=== PATIENT | male | born 1965 | race Caucasian/White ===

== ENCOUNTER 2019-01-04 00:51 | Emergency (ER) | payer BC ==
[2019-01-04] MEDS ORDERED: Amiodarone 150 MG/3 ML VIAL ONE (00:58)
[2019-01-04] MEDS ORDERED: Magnesium 2 GM/50 ML BAG (IN WATER) ONE (01:03)
[2019-01-04] MEDS ORDERED: Midazolam HCl 5 mg/ml Vial ONE (01:12)
[2019-01-04 01:16] LABS: Base Excess-Venous -0.8 mmol/L (-2.0 to 3.0); Bicarbonate (HCO3v) 26.7 mmol/L (22.0-28.0); CO2 Tension (PvCO2) 53.8 mmHg (40.0-50.0); Chloride 106 mmol/L (98-107); Glucose 179 mg/dL (70-105); Hemoglobin - Calc 16.7 g/dL (14.0-18.0); Lactate 3.54 mmol/L (0.50-2.20); Sodium 142 mmol/L (138-145); T. Carbon Dioxide 28.4 mmol/L (22.0-28.0); vO2 Saturation-calc 22.4 % (60.0-85.0)
[2019-01-04 01:45] LABS: #Eosinphils 0.1 thou/uL (0.0-0.7); #Lymphocytes 1.9 thou/uL (1.20-3.40); #Monocytes 0.5 thou/uL (0.11-0.59); #Neutrophils 12.5 thou/uL (1.40-6.50); %Basophils 0.1 % (0.0-1.0); %Eosinophils 0.4 % (0.0-10.0); %Lymphocytes 12.4 % (21.0-51.0); %Monocytes 3.3 % (0.0-10.0); %Neutrophils 83.8 % (42.0-75.0); Hemoglobin 17.1 g/dL (14.0-18.0); Mean Corpuscular HGB CONC 34.4 g/dL (32.0-36.0); Mean Corpuscular Hemoglobin 31.2 pg (27.0-31.0); Mean Corpuscular Volume 90.8 fL (78.0-98.0); Mean Platelet Volume 9.3 fL (7.4-10.4); Platelet Count 354 thou/uL (130-400); RBC Distribution Width 12.1 % (11.5-14.5); Red Blood Cell (RBC) Count 5.49 mill/uL (4.70-6.10); White Blood Cell (WBC) Count 14.9 thou/uL (4.8-10.8)
[2019-01-04 02:09] LABS: ALT (SGPT) 26 U/L (8-55); AST (SGOT) 30 U/L (5-34); Albumin 4.8 g/dL (3.5-5.0); Alkaline Phosphatase 81 U/L (40-150); Anion Gap 19 mmol/L (10-20); BUN (Urea Nitrogen) 23 mg/dL (8.4-25.7); Bilirubin, Total 1.1 mg/dL (0.2-1.2); CK (CPK) 143 U/L (30-200); Calc. Creatinine Clearance 0 mL/min (70-130); Calcium 10.8 mg/dL (7.8-10.44); Carbon Dioxide 25 mmol/L (22-29); Chloride 105 mmol/L (98-107); Estimated GFR-MDRD 40; Globulin 2.9 g/dL (2.4-3.5); Glucose 176 mg/dL (70-105); Magnesium 2.2 mg/dL (1.6-2.6); Protein, Total 7.7 g/dL (6.0-8.3); Sodium 145 mmol/L (136-145)
[2019-01-04 02:32] LABS: CKMB 9.7 ng/mL (0-6.6)
--- NOTE | 2019-01-04 07:43 | RAD ---
RADIOGRAPH CHEST 1 VIEW: DATE: 01/04/2019 HISTORY: Tachycardia and cardiac arrhythmia FINDINGS: There is cardiomegaly. There is no evidence of airspace density, pulmonary edema, or pneumothorax. Th e lateral costophrenic angles are not effaced. IMPRESSION: 1) No acute pulmonary findings. 2) cardiomegaly without congestive heart failure.
== END 2019-01-04 03:43 | disposition left against medical advice (07) ==
LOC: ERS 00:51
DX: R00.0 Tachycardia, unspecified (principal); R79.89 Other specified abnormal findings of blood chemistry
CPT/HCPCS: 71045; 80053; 82330; 82435; 82550; 82553; 82565; 82803; 82947; 83605; 83735; 84132; 84295; 84443; 84484; 85014; 85025; 93005; 96361; 96365; 96374; 96375; J0282; J2250; J3475

== ENCOUNTER → 2019-01-31 | Day surgery (SDC) | payer BC ==
[2019-01-30 13:25] VITALS: BMI 23.4
[~2019-01-31] MED LIST: Adenosine 6 MG/2 ML VIAL ONE; Fentanyl 100 MCG/2 ML VIAL ONE; Heparin 10,000 UNITS/1 ML VIAL ONE; Iopamidol 370 76% 100 ML VIAL ONE; Lidocaine 1% (PF) 30 ML VIAL ONE; Midazolam HCl 2 mg/2 ml Vial ONE; Nitroglycerin 100MG/250ML BOT 250 ML ONE; Verapamil 5 MG/2 ML VIAL ONE
[2019-01-31 07:09] LABS: ALT (SGPT) 20 U/L (8-55); AST (SGOT) 22 U/L (5-34); Albumin 3.9 g/dL (3.5-5.0); Alkaline Phosphatase 72 U/L (40-150); Anion Gap 13 mmol/L (10-20); BUN (Urea Nitrogen) 17 mg/dL (8.4-25.7); Bilirubin, Total 0.5 mg/dL (0.2-1.2); Calc. Creatinine Clearance 100 mL/min (70-130); Calcium 9.8 mg/dL (7.8-10.44); Carbon Dioxide 27 mmol/L (22-29); Chloride 105 mmol/L (98-107); Estimated GFR-MDRD 87; Globulin 2.6 g/dL (2.4-3.5); Glucose 95 mg/dL (70-105); Protein, Total 6.5 g/dL (6.0-8.3); Sodium 141 mmol/L (136-145)
== END ==
LOC: CCL 06:08
PROVIDERS: ATTEND Internal Medicine Cardiovascular Disease
PROC: B2111ZZ Fluoroscopy of Multiple Coronary Arteries using Low Osmolar Contrast (ICD-10-PCS; principal; 2019-01-31)
PROC: 4A023N7 Measurement of Cardiac Sampling and Pressure, Left Heart, Percutaneous Approach (ICD-10-PCS; principal; 2019-01-31)
DX: I47.2 Ventricular tachycardia (principal); Z79.899 Other long term (current) drug therapy
CPT/HCPCS: 80053; 93458; 99152; C1769; J0153; J1644; J2001; J2250; J3010; Q9967

== ENCOUNTER 2019-05-10 07:53 | Day surgery (SDC) | payer BC ==
[2019-05-09 13:10] VITALS: BMI 24.0
[2019-05-10] MEDS ORDERED: PROPOFOL 200 MG/20 ML VIAL ONE (10:06)
--- NOTE | 2019-05-10 11:57 | OP ---
DATE OF PROCEDURE: 05/10/2019 [facility] STERILIZER SURGEON: None. PROCEDURE PERFORMED: Colonoscopy with snare polypectomy. INDICATION: Personal history of colon polyps. MEDICATIONS: See Anesthesia record. FINDINGS: After discussion of the risks, benefits, and alternatives of the procedure, informed consent was obtained and witnessed. Pre-endoscopic cardiopulmonary examination was satisfactory. Time-out was performed before sedation was achieved. Sedation was achieved with Anesthesia assistance in the endoscopy unit. Digital rectal exam was performed, which was unremarkable. A Pentax adult colonoscope was inserted into the anus and passed forward to the cecum in the usual fashion. The cecal base was identified by the appendiceal orifice as well as the ileocecal valve. The terminal ileum was intubated and the ileal mucosa appeared normal. The colonoscope was slowly withdrawn in a gradual and circumferential manner with careful examination of the entire colonic mucosa. The quality of the prep was good. In the ascending colon, there was a sessile polyp measuring 7 mm in diameter. This was completely removed with hot snare and retrieved for pathology. In the transverse colon, there were 2 sessile polyps measuring from 1 to 4 mm in diameter. These were completely removed with cold snare and retrieved for pathology. In the sigmoid colon, there was a polyp measuring 1 mm in diameter. This was completely removed with cold snare and retrieved for pathology. There was an inverted diverticulum in the sigmoid colon. Retroflexion in the rectum demonstrated internal hemorrhoids. The colonoscope was completely withdrawn and the patient allowed to recover. The patient tolerated the procedure well. There were no immediate postprocedure complications. IMPRESSION: 1. A 7-mm ascending colon polyp, completely removed with hot snare and retrieved for pathology. 2. Two tiny transverse colon polyps, completely removed with cold snare and retrieved for pathology. 3. One tiny sigmoid colon polyp, completely removed with cold snare and retrieved for pathology. 4. Inverted diverticulum in the sigmoid colon. 5. Internal hemorrhoids. RECOMMENDATIONS: 1. Follow up pathology on the colon polyps. 2. Repeat colonoscopy for surveillance depending on pathology results. Job ID: [id number]
== END 2019-05-10 11:05 | disposition home or self-care (01) ==
LOC: SDC 07:53
PROVIDERS: ATTEND Internal Medicine
PROC: 0DBN8ZX Excision of Sigmoid Colon, Via Natural or Artificial Opening Endoscopic, Diagnostic (ICD-10-PCS; principal; 2019-05-10)
PROC: 0DBL8ZX Excision of Transverse Colon, Via Natural or Artificial Opening Endoscopic, Diagnostic (ICD-10-PCS; principal; 2019-05-10)
PROC: 0DBK8ZX Excision of Ascending Colon, Via Natural or Artificial Opening Endoscopic, Diagnostic (ICD-10-PCS; principal; 2019-05-10)
DX: Z12.11 Encounter for screening for malignant neoplasm of colon (principal); D12.3 Benign neoplasm of transverse colon; K57.30 Diverticulosis of large intestine without perforation or abscess without bleeding; K64.8 Other hemorrhoids; D86.89 Sarcoidosis of other sites; Z86.010 Personal history of colon polyps; Z79.1 Long term (current) use of non-steroidal anti-inflammatories (NSAID); Z79.52 Long term (current) use of systemic steroids; Z79.899 Other long term (current) drug therapy; Z95.810 Presence of automatic (implantable) cardiac defibrillator
CPT/HCPCS: 88305; J2704

== ENCOUNTER 2019-07-11 09:00 | Outpatient (CLI) | payer BC ==
--- NOTE | 2019-07-11 10:55 | BD ---
DEXA SCAN: Date: 07/11/2019 HISTORY: Osteoporosis. COMPARISON: None. FINDINGS: Lumbar Spine: BMD (g/cm2) L1 0.773 T-Score: -2.7 Z-Score: -2.3 L2 0.925 T-Score: -1.5 Z-Score: -1.1 L3 0.921 T-Score: -1.7 Z-Score: -1.2 L4 0.850 T-Score: -2.2 Z-Score: -1.7 L1-L4 0.871 T-Score: -2.0 Z-Score: -1.5 Femoral Neck: 0.856 T-Score: -0.3 Z-Score: 0.6 Total Femur: 1.107 T-Score: 0.9 Z-Score: 0.9 FRAX WHO fracture risk assessment tool estimates the 10 year fracture risk for this patient for a oralia or osteoporotic fracture of 3.8% and for a hip fracture of 0.1%. IMPRESSION: Based on WHO criteria, the patient's bone mineral density is osteopenic. The patient is at moderate r isk for fracture. POS: [facility]
== END 2019-07-11 09:01 | disposition home or self-care (01) ==
LOC: BICMAMMO 09:00
DX: Z13.820 Encounter for screening for osteoporosis (principal); Z79.899 Other long term (current) drug therapy; Z79.52 Long term (current) use of systemic steroids; M85.89 Other specified disorders of bone density and structure, multiple sites
CPT/HCPCS: 77080

== ENCOUNTER 2020-09-24 15:27 | Outpatient (CLI) | payer BC | END 2020-09-24 15:28 | disposition home or self-care (01) | LOC: BICULT 15:27 | PROVIDERS: ATTEND Family Medicine | DX: E04.9 Nontoxic goiter, unspecified (principal); E01.0 Iodine-deficiency related diffuse (endemic) goiter | CPT/HCPCS: 76536 ==

== ENCOUNTER 2022-04-16 10:54 | Outpatient (CLI) | payer BC | END 2022-04-16 10:55 | disposition home or self-care (01) | LOC: BICMAMMO 10:54 | PROVIDERS: ATTEND Family Medicine | DX: Z13.820 Encounter for screening for osteoporosis (principal); D86.85 Sarcoid myocarditis; M85.88 Other specified disorders of bone density and structure, other site; Z79.52 Long term (current) use of systemic steroids | CPT/HCPCS: 77080 ==

== ENCOUNTER 2023-03-24 14:17 | Outpatient (CLI) | payer BC | END 2023-03-24 14:18 | disposition home or self-care (01) | LOC: SCSRAD 14:17 | PROVIDERS: ATTEND Family Medicine | DX: M25.511 Pain in right shoulder (principal); M25.512 Pain in left shoulder ==

== ENCOUNTER 2023-04-22 07:59 | Outpatient (CLI) | payer BC | END 2023-04-22 08:00 | disposition home or self-care (01) | LOC: BICMAMMO 07:59 | PROVIDERS: ATTEND Family Medicine | DX: M81.0 Age-related osteoporosis without current pathological fracture (principal); M85.88 Other specified disorders of bone density and structure, other site | CPT/HCPCS: 77080 ==

== ENCOUNTER → 2023-05-05 | Day surgery (SDC) | payer BC ==
[~2023-05-05] MED LIST changes: -Adenosine 6 MG/2 ML VIAL ONE; +EPINEPHrine 1 MG/ML AMP ONE; -Fentanyl 100 MCG/2 ML VIAL ONE; -Heparin 10,000 UNITS/1 ML VIAL ONE; +Iopamidol 300 61% 100 ML VIAL FS ONE; -Iopamidol 370 76% 100 ML VIAL ONE; -Lidocaine 1% (PF) 30 ML VIAL ONE; +Lidocaine 1% PF 5 ML VIAL ONE; -Midazolam HCl 2 mg/2 ml Vial ONE; -Nitroglycerin 100MG/250ML BOT 250 ML ONE; +Sodium Chloride 0.9% 50 ML BAG ONE; -Verapamil 5 MG/2 ML VIAL ONE
== END ==
LOC: RAD 07:40
PROVIDERS: ATTEND Orthopaedic Surgery
PROC: BP29YZZ Computerized Tomography (CT Scan) of Left Shoulder using Other Contrast (ICD-10-PCS; principal; 2023-05-05)
DX: M25.512 Pain in left shoulder (principal)
CPT/HCPCS: 23350; J0171; Q9967